=== PATIENT | female | born 1945 | race Caucasian/White ===

== ENCOUNTER → 2018-07-26 | Day surgery (SDC) | payer MEDICARE ==
[2018-07-23 15:49] LABS: BASOPHILS % 0.5 % (0.0-1.0); EOSINOPHILS # (AUTO) 0.1 (0.0-0.4); EOSINOPHILS % 1.7 % (0.0-6.0); HEMATOCRIT 44.6 % (34.2-44.1); HEMOGLOBIN 14.6 g/dL (12.0-16.0); LYMPHOCYTES # (AUTO) 2.6 (1.0-3.2); LYMPHOCYTES % 33.6 % (18.0-39.1); MEAN CORPUSCULAR HEMOGLOBIN 30.7 pg (28-32); MEAN CORPUSCULAR HGB CONC 32.7 g/dL (31-35); MEAN CORPUSCULAR VOLUME 93.9 fL (81-99); MONOCYTES # (AUTO) 0.7 (0.2-0.8); MONOCYTES % 8.7 % (4.4-11.3); NEUTROPHILS # (AUTO) 4.2 (2.1-6.9); NEUTROPHILS % 55.2 % (38.7-80.0); PLATELET COUNT 263 x10e3/uL (140-360); RED BLOOD COUNT 4.75 x10e6/uL (3.6-5.1); RED CELL DISTRIBUTION WIDTH 13.2 % (11.7-14.4)
[2018-07-23 16:13] LABS: AMYLASE 37 U/L (25-125); LIPASE 30 U/L (8-78)
[~2018-07-26] MED LIST: ACETAMINOPHEN 1000 MG/100 ML 100 ML IV ONE; ALEVE220 MG PO; AMITRIPTYLINE H25 MG PO; CALCIUM; CIPRO500 MG PO; CLARITIN-D 241 EACH PO; CYMBALTA; CYMBALTA60 MG PO; DICYCLOMINE; DONNATAL/LIDOCAINE/MAALOX 30 ML SUSP PO ONE; FLUTICASONE PRO16 GM; GABAPENTIN400 MG PO; HYDROCODONE/APAP 5MG-325MG TAB ONE; LIDOCAINE HCL 2% LOCAL INJ 5 ML SDV VIAL INJ ONE; LIPITOR20 MG PO; MIDAZOLAM HCL 2 MG/2 ML VIAL ONE; NORCO 10-325 T1 EACH PO; ONDANSETRON HCL INJ 2 MG/ML VIAL ONE; OXYBUTYNIN CHLOR5 M1 PO; PANTOPRAZOLE; PANTOPRAZOLE 40 MG 10ML VIAL ONE; PRAVASTATIN; PROPOFOL IV EMULSION 10 MG/ML 50 ML VIAL ONE; SENNA LAX8.6 MG PO; SINGULAIR10 MG PO; SUCRALFATE; TYLENOL WITH C1 EACH PO; VICODIN; VITAMIN D; ZALEPLON; ZALEPLON10 MG PO; ZOFRAN4 MG PO
--- NOTE | 2018-07-26 10:05 | Operative Report ---
DATE OF PROCEDURE: July 26, 2018 REFERRING PHYSICIAN: Dr. Anabel Churchill PROCEDURES PERFORMED 1. Esophagogastroduodenoscopy with esophageal dilatation and biopsies. 2. Colonoscopy with polypectomy and biopsies. INDICATIONS FOR EGD: Heartburn, indigestion, intermittent dysphagia. INDICATIONS FOR COLONOSCOPY: Colorectal cancer surveillance, personal history of colon polyps, intermittent loose stools. MEDICATION: Patient was done under MAC. Please see anesthesiologist's note. PROCEDURE: With the patient in the left lateral decubitus position, the flexible fiberoptic Olympus gastroscope was introduced into the esophagus under direct visualization without any difficulty. There was some patchy erythema noted in the distal esophagus. There was some patchy erythema noted in the distal esophagus. GE junction appeared somewhat nodular, and that was biopsied. The esophagus was dilated to a size 52-[place]. The scope was then advanced with ease into the stomach, traversing a small sliding hiatal hernia. Mucosa overlying the antrum and the body revealed some patchy erythema and mild to moderate edema, and biopsies were obtained and sent to stain for H. pylori. Pylorus was intubated with ease. The scope was advanced all the way to the 2nd portion of the duodenum. Biopsies were obtained from the proximal 2nd portion to rule out sprue considering the patient's history of diarrhea. The mucosa overlying the duodenal bulb appeared to be within normal limits. The scope was then withdrawn back into the stomach and retroflexed. Mucosa overlying the fundus and cardia appeared to be within normal limits. The scope was then straightened out. The stomach was decompressed. The scope was subsequently withdrawn. Patient tolerated the procedure well. IMPRESSION 1. Mild distal esophagitis. 2. Gastroesophageal junction nodular, biopsied. 3. Esophagus dilated to a size 52-[place]. 4. Small sliding hiatal hernia. 5. Gastritis, biopsied. Biopsies sent to stain for H. pylori. 6. Rule out sprue. PLAN: Follow up histology. Initiate Protonix 40 mg 1 p.o. q.a.m. a.c. The patient was then turned around. After adequate lubrication of the anal canal, a flexible fiberoptic Olympus colonoscope was inserted all the way to the cecum. The scope was then withdrawn slowly. Mucosa overlying the cecum and the proximal ascending appeared to be within normal limits. There was an approximately 1.2-cm submucosal lesion suspicious for lipoma in the distal ascending colon that was biopsied. There was some scattered diverticular disease noted. The mucosa overlying the left colon revealed some patchy mild inflammatory changes, and random biopsies were obtained. One polyp was hot biopsied from the descending colon. Two polyps were hot biopsied from the sigmoid. One polyp was snared from the rectum. Scope was then retroflexed into the distal rectum, and the area around the dentate line appeared to be within normal limits. The scope was then straightened out. It was subsequently withdrawn after securing an adequate stool specimen that was sent for the appropriate stool studies. Patient tolerated the procedure well. IMPRESSION 1. Rule out lipoma, ascending colon. 2. Descending colon polyp, hot biopsied. 3. Diverticulosis. 4. Mild, patchy, left-sided colitis. 5. Sigmoid colon polyps times 2, hot biopsied. 6. Rectal polyp times 1, snared. PLAN: Follow up histology. Follow up stool studies. Initiate Bentyl 10 mg 1 p.o. t.i.d. Patient will need a followup colonoscopy in 3 years. Job#: [id number] cc:ANABEL CHURCHILL MD
[2018-07-26 10:16] LABS: C DIFFICILE TOXIN A&B AMP PROB NEGATIVE (NEGATIVE); WBC,FECAL (FECAL LACTOFERRIN) NEGATIVE (NEGATIVE)
--- NOTE | 2018-07-26 11:40 | Diagnostic Imaging Report ---
EXAMINATION: ABDOMEN-2VIEWS (KUB) INDICATION: ABDOMINAL PAIN AFTER COLONOSCOPY COMPARISON: None FINDINGS: Exam limited by portable technique and body habitus. There are air filled small and large bowel loops without evidence of obstruction. No definite intraperitoneal air. Elevation of the right hemidiaphragm is noted. Partially seen extensive thoracolumbar fixation with bilateral rods and screws and intervertebral spacers. The hardware spans the lower thoracic levels, lumbar spine, sacrum, and across the sacroiliac joints. IMPRESSION: Limited exam. Air filled small and large bowel loops status post colonoscopy without definite free intraperitoneal air. Signed by: Dr. Travis Peguero MD on 07/26/2018 11:36 AM
[2018-07-26 12:35] VITALS: BP 147/75
== END | disposition home or self-care (01) ==
LOC: OR 05:23
PROVIDERS: ATTEND Internal Medicine Gastroenterology
DX: K29.70 Gastritis, unspecified, without bleeding (principal); D12.4 Benign neoplasm of descending colon; D12.8 Benign neoplasm of rectum; K51.50 Left sided colitis without complications; K21.0 Gastro-esophageal reflux disease with esophagitis; K44.9 Diaphragmatic hernia without obstruction or gangrene; K57.30 Diverticulosis of large intestine without perforation or abscess without bleeding; K63.89 Other specified diseases of intestine; F32.9 Major depressive disorder, single episode, unspecified; Z88.6 Allergy status to analgesic agent; Z01.810 Encounter for preprocedural cardiovascular examination; Z01.812 Encounter for preprocedural laboratory examination; Z87.891 Personal history of nicotine dependence
CPT/HCPCS: 36415; 43239; 43450; 45380; 45384; 45385; 74018; 82150; 83630; 83690; 83993; 85025; 87045; 87177; 87328; 87493; 88305; 88312; 93005; J0131; J2001; J2250; J2405; 45378

== ENCOUNTER 2018-08-21 11:34 | Inpatient (IN) | payer MEDICARE ==
[~2018-08-21] VITALS: Ht 152.4 cm; Wt 83.2 kg
[~2018-08-21 11:34] MED LIST changes: -ACETAMINOPHEN 1000 MG/100 ML 100 ML IV ONE; -CIPRO500 MG PO; -CLARITIN-D 241 EACH PO; -DONNATAL/LIDOCAINE/MAALOX 30 ML SUSP PO ONE; -FLUTICASONE PRO16 GM; -HYDROCODONE/APAP 5MG-325MG TAB ONE; -LIDOCAINE HCL 2% LOCAL INJ 5 ML SDV VIAL INJ ONE; -MIDAZOLAM HCL 2 MG/2 ML VIAL ONE; -ONDANSETRON HCL INJ 2 MG/ML VIAL ONE; -PANTOPRAZOLE 40 MG 10ML VIAL ONE; -PROPOFOL IV EMULSION 10 MG/ML 50 ML VIAL ONE; -SENNA LAX8.6 MG PO; -SINGULAIR10 MG PO; -TYLENOL WITH C1 EACH PO; -ZOFRAN4 MG PO
--- OUTSIDE RECORDS SUMMARY | 2018-08-21 11:37 | XMS REPORT ---
Author Author [facility], [place] Address Unknown Phone Unavailable Care Team Providers Care Fitness Assistant Name Role Phone CHRISTOPHE EL Unavailable Unavailable Problems This patient has no known problems. Allergies, Adverse Reactions, Alerts This patient has no known allergies or adverse reactions. Medications This patient has no known medications. Results Test Description Test Time Test Comments Text Results Atomic Results Result Comments ABDOMEN-1VIEW (KU) 2018-07-26 11:30:00 [place] [id number] Patient Name: LOUANN CHANDLER MR #: [id number] : 1945 Age/Sex: 73/F Req #: [id number] Adm Physician: Ordered by: CHRISTOPHE EL MD Report #: [id number] Location: OR Room/Bed: Procedure: [id number] DX/ABDOMEN-1VIEW (KU) Exam Date: 07/26/18 Exam Time: 1110 REPORT STATUS: Signed EXAMINATION: ABDOMEN-2VIEWS (KUB) INDICATION: ABDOMINAL PAIN AFTER COLONOSCOPY COMPARISON: None FINDINGS: Exam limited by portable technique and body habitus. There are air filled small and large bowel loops without evidence of obstruction. No definite intraperitoneal air. Elevation of the right hemidiaphragm is noted. Partially seen extensive thoracolumbar fixation with bilateral rods and screws and intervertebral spacers. The hardware spans the lower thoracic levels, lumbar spine, sacrum, and across the sacroiliac joints. IMPRESSION: Limited exam. Air filled small and large bowel loops status post colonoscopy without definite free intraperitoneal air. Signed by: Dr. Diamond Peguero MD on 07/26/2018 11:36 AM Dictated By: DIAMOND PEGUERO MD [id number] Transcribed By: GRACIE on 07/26/18 1136 COPY TO: CHRISTOPHE EL MD
[2018-08-21] MEDS ORDERED: SODIUM CHLORIDE 0.9% 1000ML 1,000 ML IV STA (12:02)
[2018-08-21 12:10] LABS: BASOPHILS % 0.3 % (0.0-1.0); EOSINOPHILS # (AUTO) 0.1 (0.0-0.4); EOSINOPHILS % 0.8 % (0.0-6.0); HEMATOCRIT 40.5 % (34.2-44.1); HEMOGLOBIN 13.3 g/dL (12.0-16.0); LYMPHOCYTES # (AUTO) 1.8 (1.0-3.2); LYMPHOCYTES % 19.3 % (18.0-39.1); MEAN CORPUSCULAR HEMOGLOBIN 30.7 pg (28-32); MEAN CORPUSCULAR HGB CONC 32.8 g/dL (31-35); MEAN CORPUSCULAR VOLUME 93.5 fL (81-99); MONOCYTES # (AUTO) 0.8 (0.2-0.8); MONOCYTES % 7.9 % (4.4-11.3); NEUTROPHILS # (AUTO) 6.8 (2.1-6.9); NEUTROPHILS % 71.3 % (38.7-80.0); PLATELET COUNT 235 x10e3/uL (140-360); RED BLOOD COUNT 4.33 x10e6/uL (3.6-5.1); RED CELL DISTRIBUTION WIDTH 12.6 % (11.7-14.4)
[2018-08-21] MEDS ORDERED: ONDANSETRON HCL INJ 2 MG/ML VIAL IV ONE (12:15)
[2018-08-21] MEDS ORDERED: FAMOTIDINE 20 MG/2 ML VIAL IV ONE (12:15)
[2018-08-21] MEDS ORDERED: PROMETHAZINE 25MG/ NS 50ML (IV) IV PRN (12:15)
[2018-08-21 12:31] LABS: ALBUMIN 3.3 g/dL (3.5-5.0); ANION GAP 10.8 mmol/L (8-16); CALCIUM 9.2 mg/dL (8.4-10.2); CREATININE, SERUM 0.97 mg/dL (0.57-1.11); POTASSIUM 3.8 mmol/L (3.5-5.1)
[2018-08-21] MEDS: MORPHINE SULFATE INJ 4 MG/ML INJ IV PRN ×2 (12:33→18:00)
[2018-08-21] MEDS ORDERED: DIATRIZOATE MEGL/DIATRIZOA SOD 30 ML BTL PO ONE (13:12)
[2018-08-21] MEDS ORDERED: HYDROCODONE/APAP 5MG-325MG TAB PO ONE (13:15)
[2018-08-21] MEDS ORDERED: HYDROMORPHONE 2MG/ML 2 MG/ML ML IV PRN (13:45)
[2018-08-21] MEDS ORDERED: ONDANSETRON HCL INJ 2 MG/ML VIAL IV PRN ×2 (13:45→16:30)
[2018-08-21] MEDS ORDERED: ENALAPRILAT IV INJ 1.25 MG/ML VIAL IV PRN ×2 (13:45→16:30)
[2018-08-21] MEDS ORDERED: DIPHENHYDRAMINE HCL INJ 50 MG/ML VIAL IV PRN ×2 (13:45→16:30)
[2018-08-21] MEDS ORDERED: ENALAPRILAT IV INJ 1.25 MG/ML VIAL ONE (14:00)
--- NOTE | 2018-08-21 15:05 | Diagnostic Imaging Report ---
EXAMINATION: CT of the abdomen and pelvis with contrast. TECHNIQUE: Spiral CT images of the abdomen and pelvis were performed from the lung bases to the lesser trochanters after the intravenous administration of 100 cc of Isovue-370 and the oral administration of Gastroview. Coronal and sagittal reformatted images were obtained. COMPARISON: CT abdomen and pelvis with contrast 08/10/2015 CLINICAL HISTORY:Abdominal pain DISCUSSION: ABDOMEN/PELVIS: LOWER THORAX:Bandlike atelectasis in the right middle and lower lobes. HEPATOBILIARY: Moderate intra and extrahepatic biliary ductal dilatation is similar to that noted on 08/10/2015. Mild dilatation of the cystic duct stump status post cholecystectomy, is also unchanged. No focal hepatic lesion. Gallbladder has been removed SPLEEN: No splenomegaly. PANCREAS: Mild prominence of the pancreatic duct is unchanged. No focal pancreatic lesion. ADRENALS: No adrenal nodules. KIDNEYS/URETERS: Evaluation of the kidneys is somewhat limited by beam hardening artifact from lumbar spine fusion hardware. Moderate left hydronephrosis with perinephric inflammatory change.. No obstructing calculus is identified though evaluation is limited as above. Subcentimeter exophytic lesion projecting from the upper pole of the right kidney is too small to further characterize though likely to represent a small cyst. Similar lesion in the upper and lower pole of the left kidney. Punctate nonobstructing calculus in the lower pole left collecting system as seen on series 2 image 51. PELVIC ORGANS/BLADDER: The urinary bladder is unremarkable. Multiple pelvic phleboliths. PERITONEUM/RETROPERITONEUM: No ascites. No pneumoperitoneum. LYMPH NODES: No pelvic sidewall, retroperitoneal, or mesenteric lymphadenopathy. VESSELS: Atherosclerotic calcification of the abdominal aorta, major branch vessels, and iliac arterial systems without aneurysmal dilatation. GI TRACT: Large bowel shows no evidence of distention or wall thickening. The appendix is not definitively identified. No right lower quadrant inflammatory changes. Unchanged probable lipoma in the second portion of the duodenum. BONES AND SOFT TISSUE: Postsurgical changes of sacroiliac joint fusion and multilevel thoracolumbar spinal fusion extending from T9 through the sacrum. Disc spacer placement at L2-L3 and L3-L4. Unchanged anterolisthesis of L5 over S1. No soft tissue abnormalities. IMPRESSION: Interval development of moderate-severe left hydronephrosis with perinephric fluid and inflammation. No obstructing calculus is identified, though evaluation of the ureter is markedly limited secondary to extensive beam hardening artifact from thoracolumbar spinal fusion hardware. Urology consultation is suggested. Punctate nonobstructing left lower pole renal calculus. Stable moderate intrahepatic and extrahepatic biliary ductal dilatation status post cholecystectomy. Correlation with serum bilirubin is suggested. Postsurgical changes of the thoracolumbar spine and pelvis. Atherosclerotic vascular disease. Signed by: Dr. Oliverio Robert M.D. on 08/21/2018 3:01 PM
[2018-08-21] MEDS ORDERED: CLONIDINE HCL 0.2 MG TAB PO PRN (16:30)
[2018-08-21] MEDS ORDERED: HYDROMORPHONE 1MG/1ML INJ IV PRN (16:30)
[2018-08-21] MEDS ORDERED: SODIUM CHLORIDE FLUSH 10 ML SYR INJ PRN (16:30)
[2018-08-21] MEDS ORDERED: LACTULOSE SYRUP 20 GM/30 ML UDC PO PRN (16:30)
[2018-08-21] MEDS ORDERED: PROMETHAZINE 12.5MG/ NACL 0.9% 12.5 MG/50 ML BAG IV PRN (16:30)
[2018-08-21] MEDS ORDERED: ACETAMINOPHEN 325 MG TAB PO PRN (16:30)
[2018-08-21 16:54] LABS: CLARITY,URINE SL CLOUDY (CLEAR); COLOR,URINE YELLOW (YELLOW); LEUKOCYTE ESTERASE ,URINE TRACE (NEGATIVE); NITRITE,URINE POSITIVE (NEGATIVE); PROTEIN,URINE DIPSTICK NEGATIVE (NEGATIVE)
[2018-08-21 16:55] LABS: BILIRUBIN,URINE NEGATIVE (NEGATIVE); KETONES,URINE TRACE (NEGATIVE); URINE UROBILINOGEN 0.2 mg/dL (0.2 - 1)
[2018-08-21] MEDS ORDERED: FAMOTIDINE 20 MG/2 ML VIAL IV SCH (17:00)
[2018-08-21 17:23] LABS: BACTERIA,URINE MANY /HPF; EPITHELIAL CELLS,URINE MANY /LPF; TRANSITIONAL EPI CELLS,URINE MODERATE; WBC,URINE (MAN) 0-5 /HPF (0-5)
[2018-08-21] MEDS: CEFTRIAXONE SOD 1 GM VIAL IV SCH (18:00)
[2018-08-21] MEDS: FAMOTIDINE 20 MG/2 ML VIAL IV SCH (18:14)
[2018-08-21] MEDS ORDERED: IOPAMIDOL 370 MG/ML 200 ML INFUS..BTL INJ ONE (18:20)
[2018-08-21] MEDS ORDERED: SODIUM CHLORIDE 0.9% 50ML 50 ML ONE (18:20)
[2018-08-21 20:00] VITALS: BP 164/87
[2018-08-21] MEDS: HYDROMORPHONE 2MG/ML 2 MG/ML ML IV PRN (20:47)
[2018-08-21] MEDS ORDERED: ZOLPIDEM TARTRATE 5 MG TAB PO PRN (21:00)
[2018-08-21 21:48] VITALS: BP 164/87
[2018-08-22] VITALS: BP 111/56
[2018-08-22 04:00] VITALS: BP 136/61
[2018-08-22] MEDS: CEFTRIAXONE SOD 1 GM VIAL IV SCH ×2 (05:00→17:04)
[2018-08-22 05:56] VITALS: BP 136/61
[2018-08-22] MEDS: HYDROMORPHONE 2MG/ML 2 MG/ML ML IV PRN ×3 (06:17→16:50)
[2018-08-22 06:18] LABS: ANION GAP 12.1 mmol/L (8-16); CREATININE, SERUM 1.38 mg/dL (0.57-1.11); POTASSIUM 4.1 mmol/L (3.5-5.1)
[2018-08-22 07:20] VITALS: BP 105/53
[2018-08-22 08:05] VITALS: BP 105/53
[2018-08-22] MEDS: FAMOTIDINE 20 MG/2 ML VIAL IV SCH ×2 (09:21→17:04)
--- NOTE | 2018-08-22 13:05 | Diagnostic Imaging Report ---
Renal Scan with Lasix Washout Clinical information: 73 F with moderately severe left hydronephrosis and pyelonephritis Technique: Following intravenous administration of 10.9 mCi of Tc-99m MAG3, dynamic images of the kidneys in the posterior projection were obtained through 40 minutes. Lasix 40 mg was administered intravenously at 10 minutes post injection of the tracer. Report: Left kidney: Perfusion of the left kidney is prompt. The kidney has a small reniform shape with mild thinning of the renal cortex. Extraction of tracer from the blood pool is prolonged and decreased. No clearance of tracer from the renal parenchyma is seen during the study. The pelvicalyceal system is not accurately assessed due to no tracer appearing in the renal collecting system. Obstruction cannot be evaluated, again because not tracer collects in the renal collecting system. No tracer is seen within the left ureter. Right kidney: Perfusion to the right kidney is prompt. The right kidney has a reniform shape although appears decreased in size. Extraction of tracer by the renal parenchyma is normal. Clearance of tracer from the renal parenchyma is prompt. The pelvicalyceal system is not dilated although mild caliectasis is present. Minimally increased pooling of tracer is seen within the pelvicalyceal system. Drainage of tracer from the pelvicalyceal system is adequate prior to administration of Lasix. Washout of tracer from the pelvicalyceal system following administration of Lasix is rapid with a T-1/2 of 8 minutes (normal less than 15 minutes). No significant stasis of tracer is seen within the right ureter. Differential renal function: The left kidney contributes 16% of total renal function and the right kidney contributes 84% (normal 43-57%). This reflects the by the renal parenchyma in each kidney between 1 and 3 minutes post injection of tracer. Impression: 1. The appearance and prolonged extraction of tracer from the renal parenchyma of the left kidney is consistent with chronic obstructive nephropathy; absence of elongation of the kidney suggests that the process may be somewhat acute.. This accounts for the decreased differential function of only 16%. Tubular dysfunction is also present as evidenced by lack of clearance of tracer from the renal parenchyma (excretion). Hydronephrosis and obstruction cannot be assessed by Lasix washout because no tracer is seen in the renal collecting system. Obstruction is suspected based on the findings on CT of 08/21/2018 and the severity of the tubular dysfunction. Suspect that relief of obstruction may allow the overall function of the kidney to gradual improve. 2. The function of the right kidney is generally normal for age. Mild caliectasis is present. No physiologically significant obstruction of the renal collecting system is present. Signed by: Dr. Jyoti Finney M.D. on 08/22/2018 1:01 PM
[2018-08-22] MEDS: GABAPENTIN 400 MG CAP PO SCH ×2 (16:04→22:00)
[2018-08-22] MEDS: HYDROCODONE/APAP 7.5MG-325MG 1 EA TAB PO PRN (16:05)
--- NOTE | 2018-08-22 16:39 | History and Physical ---
PRIMARY CARE PHYSICIAN: Dr. Chato Marquez. CLERGY MEMBER: Dr. Pineda Dias. CHIEF COMPLAINT 1. Left flank pain. 2. Urinary tract infection, recurrent. 3. Left hydronephrosis. HISTORY: Patient is a 73-year-old female who came into the hospital complaining of left flank pain. The patient also had abdominal pain and dysuria. She had recurrent urinary tract infection. She had ureteral stent previously. The patient now in the emergency room had workup done, found to have urinary tract infection with many bacteria with leukocyte esterase and the CT of abdomen and pelvis with contrast shown that she has development of moderate to severe left hydronephrosis with perinephric fluid and inflammation. No obstructive calculus was seen. The patient had multiple workup in the past. Urology consultation with Dr. Dias, and the patient is admitted to the hospital for further treatment. PAST MEDICAL HISTORY 1. Kidney stone. 2. Previous ureteral stent per patient. 3. Hypertension. 4. Major depression. 5. Chronic pain in lower back. 6. Degenerative disk disease. 7. Hypothyroidism. 8. History of the cervical cancer, had a hysterectomy. 9. Reflux. PAST SURGICAL HISTORY: Cholecystectomy, appendectomy, hysterectomy, multiple back surgeries, thyroidectomy. SOCIAL HISTORY: Patient does not smoke or use alcohol. No recreational drugs. ALLERGIES: MEPERIDINE. HOME MEDICATIONS: List is reviewed. REVIEW OF SYSTEMS: Lower back pain. Nausea, but no vomiting. PHYSICAL EXAMINATION VITAL SIGNS: Temperature is 98.4, blood pressure 187/80, pulse rate 78, respirations 18. GENERAL: The patient is not in acute distress. He is in pain. HEENT: Normocephalic, atraumatic. Sclerae anicteric. NECK: Supple grossly. PULMONARY: Clear. CARDIOVASCULAR: Regular rate and rhythm. ABDOMEN: Soft. Left flank tenderness. EXTREMITIES: No cyanosis or edema. NEUROLOGIC: No gross focal deficit. LABORATORY: Urinalysis: Many bacteria, positive leukocyte esterase, positive nitrite, 1+ blood. Chemistry: Sodium is 138, potassium 3.8, chloride 107, bicarb 24, BUN 26, creatinine 0.7, glucose is 97. WBC is 9.5, hemoglobin is 13.3, hematocrit 40.5, platelets is 235. IMAGING: Left ureteral obstruction, hydronephrosis, also multiple nonobstructive stones on the right. IMPRESSION 1. Complicated urinary tract infection associated with left perinephric stranding, left hydronephrosis. This could be secondary to pyelonephritis. 2. Urinary tract obstruction as mentioned on the left. Multiple punctate nonobstructive left lower pole renal calculus as well. 3. Intractable left flank pain. PLAN: Continue with IV antibiotics. Home medication. Blood pressure control. Patient will be followed up by Dr. Pineda Dias for any further adjustment of medication. Pain controlled for now. Antibiotics. Patient is stable. We will continue with treatment and followup with Dr. Dias for any further adjustment of medication. Job#: [id number] KAL
[2018-08-22] MEDS: DULOXETINE HCL 30 MG DELAYED RELEASE PO SCH (17:05)
[2018-08-22 20:00] VITALS: BP 105/52
[2018-08-22] MEDS: ATORVASTATIN 20 MG TAB PO SCH (22:00)
--- NOTE | 2018-08-22 22:19 | Consultation ---
DATE OF CONSULTATION: August 22, 2018 Consultation is called by in the emergency room. CHIEF UROLOGIC COMPLAINT/REASON FOR CONSULTATION: Hydronephrosis. HISTORY OF PRESENT ILLNESS: Mrs. Calderon is a 73-year-old female patient frequently who admitted to multiple [facility]. She has had a long-standing history of chronic back pain since early 70s, has had at least 6 back surgeries with chronic back pain, pain management, and frequent bouts of constipation secondary to associated narcotics. Urologically, the patient denied dysuria, denied gross hematuria. Does have urinary incontinence. PAST MEDICAL HISTORY: Noted for 6 back surgeries since 1973, cholecystectomy, urinary tract infections, kidney stones. Prior urologist Dr. Ronald Lacey was retired for several years. MEDICATIONS: Please see MAR. ALLERGIES: DEMEROL. SOCIAL HISTORY: No smoking. No drinking. FAMILY HISTORY: Denied urologic stones or malignancies. REVIEW OF SYSTEMS: Noncontributory other than problems mentioned above for 12 organ systems. PHYSICAL EXAMINATION VITALS: Currently she is afebrile with stable vital signs. GENERAL: An elderly female, in no acute distress. HEENT: Sclerae anicteric. NECK: Supple. BACK: Without costovertebral angle tenderness. ABDOMEN: Soft. It is nontender. It is nondistended. No palpable mass. No palpable hernias. No palpable lymphadenopathy. : Normal female external genitalia. EXTREMITIES: No edema. PSYCH: Alert. Mood appropriate. SKIN: Intact. Normal color. PERTINENT LABORATORY DATA: CT scan revealing left-sided hydronephrosis, right renal cyst, left lower pole renal stone. A large amount of spinal hardware. Hemoglobin 13, hematocrit 40, platelet count 325,000, white blood cell count 9,520. Sodium 138, potassium 3.8, chloride 107, bicarb 24, BUN 26, creatinine 0.97, glucose 97. Urinalysis 6 to 10 reds, 0 to 5 whites. IMPRESSION 1. Punctate left kidney stone. 2. Left-sided hydronephrosis. 3. Right renal cyst. 4. Microscopic hematuria. 5. Questionable urinary tract infection. 6. Urinary incontinence. PLAN: We will obtain a nuclear medicine scan to determine whether this is chronically obstructive hydronephrosis versus chronic dilation from a prior history of stones and urologic interventions. Urine culture was ordered by the emergency room. We would recommend adjusting culture-specific antibiotics if they be positive. For the punctate kidney stone, I am going to put a trial of passage and renal cyst would need surveillance. For now for the incontinence, followup urodynamics as an outpatient. Thank you for allowing us to participate in the care of your patient. We will be happy to follow along with you. Job#: [id number] PAT cc: Dr. Quinn Zhao. Dr. Yogi Chavez.
[2018-08-23] VITALS (9 sets, daily range): BP systolic 110–190; BP diastolic 61–87
[2018-08-23] MEDS: CEFTRIAXONE SOD 1 GM VIAL IV SCH ×2 (05:00→17:03)
[2018-08-23 05:32] LABS: BASOPHILS % 0.4 % (0.0-1.0); EOSINOPHILS # (AUTO) 0.1 (0.0-0.4); EOSINOPHILS % 0.5 % (0.0-6.0); HEMATOCRIT 37.5 % (34.2-44.1); HEMOGLOBIN 12.2 g/dL (12.0-16.0); LYMPHOCYTES # (AUTO) 1.2 (1.0-3.2); LYMPHOCYTES % 11.6 % (18.0-39.1); MEAN CORPUSCULAR HEMOGLOBIN 30.5 pg (28-32); MEAN CORPUSCULAR HGB CONC 32.5 g/dL (31-35); MEAN CORPUSCULAR VOLUME 93.8 fL (81-99); MONOCYTES # (AUTO) 0.9 (0.2-0.8); MONOCYTES % 9.3 % (4.4-11.3); NEUTROPHILS # (AUTO) 7.9 (2.1-6.9); NEUTROPHILS % 77.8 % (38.7-80.0); PLATELET COUNT 210 x10e3/uL (140-360); RED CELL DISTRIBUTION WIDTH 13.2 % (11.7-14.4)
[2018-08-23 05:59] LABS: ANION GAP 13.2 mmol/L (8-16); CALCIUM 9.3 mg/dL (8.4-10.2); CREATININE, SERUM 1.37 mg/dL (0.57-1.11); POTASSIUM 4.2 mmol/L (3.5-5.1)
[2018-08-23] MEDS: DULOXETINE HCL 30 MG DELAYED RELEASE PO SCH ×2 (08:20→17:03)
[2018-08-23] MEDS: FAMOTIDINE 20 MG/2 ML VIAL IV SCH ×2 (08:20→17:03)
[2018-08-23] MEDS: GABAPENTIN 400 MG CAP PO SCH ×3 (08:20→20:25)
[2018-08-23] MEDS: HYDROCODONE/APAP 7.5MG-325MG 1 EA TAB PO PRN ×2 (10:32→20:25)
[2018-08-23] MEDS ORDERED: FUROSEMIDE INJ 10 MG/ML 4 ML VIAL ONE (14:12)
[2018-08-23] MEDS: ATORVASTATIN 20 MG TAB PO SCH (20:25)
[2018-08-24] VITALS (9 sets, daily range): BP systolic 102–161; BP diastolic 53–71
[2018-08-24] MEDS: FAMOTIDINE 20 MG/2 ML VIAL IV SCH ×2 (02:30→16:41)
[2018-08-24] MEDS: HYDROCODONE/APAP 7.5MG-325MG 1 EA TAB PO PRN ×3 (02:30→16:41)
[2018-08-24] MEDS: CEFTRIAXONE SOD 1 GM VIAL IV SCH ×2 (04:56→16:41)
[2018-08-24] MEDS ORDERED: IOPAMIDOL 610MG/1ML 300 MG/ML VIAL IV ONE (07:44)
--- NOTE | 2018-08-24 09:41 | Operative Report ---
DATE OF PROCEDURE: August 24, 2018 PREOPERATIVE DIAGNOSES 1. Microscopic hematuria. 2. Left hydronephrosis. POSTOPERATIVE DIAGNOSES 1. Microscopic hematuria. 2. Left hydronephrosis. PROCEDURES 1. Cystourethroscopy with insertion of left indwelling stent (entirely separate procedure for diagnosis of left hydronephrosis). 2. Cystourethroscopy with right ureteral catheterization and right retrograde pyelogram (separate procedure for diagnosis of microscopic hematuria). 3. Supervision of fluoroscopy. 4. Interpretation of retrograde pyelography. ANESTHESIA: General. ESTIMATED BLOOD LOSS: Minimal. COMPLICATIONS: None. INDICATIONS FOR PROCEDURE: Ms. Calderon is a very pleasant 73-year-old female, admitted to the hospital with intractable pain. She has been found to have a left-sided hydronephrosis and by nuclear medicine scan obstructed left kidney. She and I had a long discussion about alternatives, risks, and benefits including doing nothing, stent placement, percutaneous ureterostomy, and open surgery. She voiced understanding of the options, alternatives, risks, and benefits and she elected to proceed. PROCEDURE IN DETAIL: After informed consent was obtained, the patient was taken to the operating suite and placed supine on the operating table. She underwent general anesthesia by the anesthesia service. She was then placed in the dorsal lithotomy position and sterilely prepped and draped in the standard fashion for cystoscopy. A 21-Finnish cystoscope was inserted per urethra. A normal urethra was noted. Panendoscopy of the bladder revealed no tumors and no stones. Both ureteral orifices were within normal anatomic location. Bilateral ureteral orifices were catheterized with a 5-Finnish open-ended catheter and retrograde pyelograms performed. The right was normal. The left was normal distally until the mid ureter. Of note, there is a large amount of spinal hardware. The ureter abruptly tapers after what looks like a vertebroplasty disk in the mid ureter with tortuosity. Proximal to this, there was dilation. With moderate difficulty, guidewire was advanced proximal to this. Due to the tortuosity, we could not get a 24 cm stent to pass in the mid tortuosity and with 28 cm stent, I was able to get this and coil formed in the lower pole and in the collecting system. We had good drainage, straightening out the tortuosity. There was a deluge of purulent dark material coming from the stent. At this point, bladder was drained. Patient was awakened from anesthesia and transported to the recovery room in excellent condition. SUPERVISION OF FLUOROSCOPY, INTERPRETATION OF RETROGRADE URETERAL PYELOGRAPHY: I was present throughout the entire procedure and supervised the use of fluoroscopy. There was no radiologist present at any time during this procedure. Attention was turned toward the left and right ureteral orifices and catheterized with 5-Finnish open-ended catheter. Retrograde pyelograms performed. Right was normal. Left revealed dilated distal ureter. In the mid ureter, there was definitive transition point with proximal tortuosity and grade 4 hydronephrosis. Postoperative views on the left side revealed the stent coiled in the lower pole and in the bladder. There was a large amount of back hardware. Job#: [id number] YOLANDA
[2018-08-24] MEDS: GABAPENTIN 400 MG CAP PO SCH ×3 (10:25→22:06)
[2018-08-24] MEDS: DULOXETINE HCL 30 MG DELAYED RELEASE PO SCH ×2 (10:25→16:41)
[2018-08-24] MEDS ORDERED: PROPOFOL IV EMULSION 10 MG/ML 20 ML VIAL ONE (17:51)
[2018-08-24] MEDS ORDERED: SEVOFLURANE INHAL SOLN 250 ML PEN BTL ONE (17:51)
[2018-08-24] MEDS ORDERED: FENTANYL CITRATE/PF 100MCG/2 ML INJ ONE (18:09)
[2018-08-24] MEDS ORDERED: MIDAZOLAM HCL 2 MG/2 ML VIAL ONE (18:09)
[2018-08-24] MEDS: ATORVASTATIN 20 MG TAB PO SCH (22:06)
[2018-08-25] VITALS: BP 120/60
[2018-08-25 04:00] VITALS: BP 132/66
[2018-08-25] MEDS: CEFTRIAXONE SOD 1 GM VIAL IV SCH (06:00)
[2018-08-25 06:03] LABS: BASOPHILS % 0.4 % (0.0-1.0); EOSINOPHILS # (AUTO) 0.2 (0.0-0.4); HEMATOCRIT 38.4 % (34.2-44.1); HEMOGLOBIN 12.3 g/dL (12.0-16.0); LYMPHOCYTES # (AUTO) 1.4 (1.0-3.2); LYMPHOCYTES % 20.2 % (18.0-39.1); MEAN CORPUSCULAR HEMOGLOBIN 30.7 pg (28-32); MEAN CORPUSCULAR VOLUME 95.8 fL (81-99); MONOCYTES # (AUTO) 0.7 (0.2-0.8); MONOCYTES % 10.8 % (4.4-11.3); NEUTROPHILS # (AUTO) 4.4 (2.1-6.9); NEUTROPHILS % 65.2 % (38.7-80.0); PLATELET COUNT 186 x10e3/uL (140-360); RED BLOOD COUNT 4.01 x10e6/uL (3.6-5.1); RED CELL DISTRIBUTION WIDTH 12.8 % (11.7-14.4)
[2018-08-25 06:26] LABS: ANION GAP 13.1 mmol/L (8-16); BLOOD UREA NITROGEN 19 mg/dL (7-26); BUN/CREATININE RATIO 22 (6-25); CALCIUM 9.2 mg/dL (8.4-10.2); CARBON DIOXIDE 23 mmol/L (22-29); CHLORIDE 107 mmol/L (98-107); CREATININE, SERUM 0.86 mg/dL (0.57-1.11); EST GLOMERULAR FILTRATION RATE > 60 ML/MIN (60-); GLUCOSE 105 mg/dL (74-118); POTASSIUM 5.1 mmol/L (3.5-5.1); SODIUM 138 mmol/L (136-145)
[2018-08-25 08:00] VITALS: BP 146/70
[2018-08-25 08:53] VITALS: BP 146/70
[2018-08-25] MEDS: GABAPENTIN 400 MG CAP PO SCH ×2 (08:53→15:32)
[2018-08-25] MEDS: DULOXETINE HCL 30 MG DELAYED RELEASE PO SCH (08:53)
[2018-08-25] MEDS: FAMOTIDINE 20 MG/2 ML VIAL IV SCH (08:53)
[2018-08-25 12:00] VITALS: BP 145/68
[2018-08-25] MEDS ORDERED: TYLENOL WITH C1 EACH PO (14:59)
[2018-08-25] MEDS ORDERED: ZOFRAN4 MG PO (14:59)
[2018-08-25] MEDS ORDERED: SENNA LAX8.6 MG PO (15:00)
[2018-08-25] MEDS ORDERED: CIPRO500 MG PO (15:00)
[2018-08-25] MEDS ORDERED: CLARITIN-D 241 EACH PO (15:01)
[2018-08-25] MEDS ORDERED: FLUTICASONE PRO16 GM (15:02)
[2018-08-25] MEDS ORDERED: SINGULAIR10 MG PO (15:03)
[2018-08-25] MEDS ORDERED: ALPRAZOLAM 0.25 MG TAB PO ONE (16:00)
--- NOTE | 2018-08-25 21:58 | Discharge Summary ---
PCP: Dr. Chato Marquez GROUND OPERATIONS SUPERVISOR: Dr. Pineda Dias ATTENDING: Dr. Quinn Zhao FINAL DIAGNOSES 1. Left renal colic associated with hydronephrosis, associated with obstruction of the ureter. 2. Urinary tract infection with pyelonephritis most likely given pain and infection with urinalysis. 3. Status post ureteral stent placement to the left ureter by Dr. Pineda Dias. 4. Allergic rhinitis. SUMMARY: A 73-year-old female, who came in with left renal colic associated with left flank pain. Urinalysis shows significant infection. There is no fever, however. She did have intractable pain, was treated. Patient's WBC was normal. The patient has abdominal and pelvic CT scan shown that she does have moderate to severe left hydronephrosis with perinephric fluid and inflammation consistent with infection, possible early pyelonephritis. Patient was treated with antibiotics. She has responded well. Pain improved with pain medication. She is now status post left ureteral stent placement by Dr. Pineda Dias. The patient to follow up Dr. Dias per his instruction. Patient stable, discharged home today. Medication reconciliation is done. She will resume her home medication. NEW PRESCRIPTION: Tylenol No. 3, Zofran, Cipro, Senna-S Claritin D 12 hours q. a.m. p.r.n. for sinus congestion, Flonase, and Singulair. Patient is to follow up with Dr. Chato Marquez her PCP for management of her other medical issues and Dr. Pineda Dias for the stent management. Job#: [id number] CQ
== END 2018-08-25 16:52 | disposition home or self-care (01) | DRG 661 ==
LOC: ER 11:34 → ERHOLD 17:42 → MED/SURG3 18:39
PROVIDERS: ADMIT Internal Medicine; ATTEND Internal Medicine
PROC: BT141ZZ Fluoroscopy of Kidneys, Ureters and Bladder using Low Osmolar Contrast (ICD-10-PCS; 2018-08-24)
PROC: 0T778DZ Dilation of Left Ureter with Intraluminal Device, Via Natural or Artificial Opening Endoscopic (ICD-10-PCS; principal; 2018-08-24 07:30)
DX: N13.6 Pyonephrosis (principal); J30.9 Allergic rhinitis, unspecified; N28.1 Cyst of kidney, acquired; F32.9 Major depressive disorder, single episode, unspecified; K21.9 Gastro-esophageal reflux disease without esophagitis; E03.9 Hypothyroidism, unspecified; M54.9 Dorsalgia, unspecified; G89.29 Other chronic pain; R32 Unspecified urinary incontinence; Z28.21 Immunization not carried out because of patient refusal
CPT/HCPCS: 36415; 74177; 74420; 78708; 80048; 80053; 81001; 82150; 83690; 85025; 99284; A9562; J0696; J1200; J1940; J2250; J2270; J2405; J2550; J7030; Q9967